=== PATIENT | female | born 1950 | race Caucasian/White ===

== ENCOUNTER 2017-02-15 07:31 | Day surgery (SDC) | payer MEDICARE, OTHER ==
[~2017-02-15 07:31] MED LIST: Lactated Ringers 1,000 ML IV SCH
[2017-02-15] MEDS ORDERED: Propofol 200 MG/20 ML SDV IV ONE (09:30)
[2017-02-15 10:29] VITALS: BP 127/54
--- NOTE | 2017-02-15 15:56 | OR ---
DATE OF OPERATION: 02/15/2017 SURGEON: Adithya Martinez MD PREOPERATIVE DIAGNOSIS: Cataract right eye. POSTOPERATIVE DIAGNOSIS: Cataract right eye. OPERATION PERFORMED: Phacoemulsification of cataract right eye with placement of an Goss, model ZCB00, 22 diopter, foldable, posterior chamber intraocular lens. PRINT LINE OPERATOR: None. DESCRIPTION OF PROCEDURE: Peribulbar anesthetic was performed using a mixture of 2% lidocaine with Wydase. The patient was prepped and draped in the usual fashion. A 3 mm fornix based conjunctival flap was performed at the 10 o'clock position. Hemostasis was obtained using diathermy, and a 2.8 mm grooved near clear corneal incision was then made. A stab incision was made into the anterior chamber at the 12 o'clock position and a second stab wound incision was made underlying the grooved near clear corneal incision. Viscoat was instilled into the anterior chamber, and a continuous tear capsulotomy was performed. Hydrodissection was accomplished with balanced salt solution, and the nucleus was removed in a divide and conquer fashion. The remaining cortical material was removed with the irrigation and aspiration unit. Viscoat was instilled into the anterior chamber, and an Goss, model ZCB00, 22 diopter, foldable, posterior chamber intraocular lens was placed into the capsular bag, the haptics being positioned at the 1 and 7 o'clock positions. The residual Viscoat was removed from the anterior chamber and the anterior chamber reformed with balanced salt solution. The wound was checked and noted to be watertight. The conjunctiva was secured in its original position with diathermy. Alphagan and Maxitrol Ointment were then placed into the patient's eye. The patient tolerated the procedure well and it was without complication. Elapsed phacoemulsification time was 21 seconds. Postoperative instructions as related to activities as well as medications were reviewed with the patient. The patient was instructed to return to see me on the day following surgery for the first postoperative check. The patient was also instructed to contact me prior to that time if she were to have any problems. /[id number] DEG/MODL CC: Dipesh Germain, SHREYA Hannon
== END 2017-02-15 11:10 | disposition home or self-care (01) ==
LOC: FB.SDS 07:31
PROVIDERS: ATTEND Ophthalmology
DX: H26.9 Unspecified cataract (principal); I25.810 Atherosclerosis of coronary artery bypass graft(s) without angina pectoris; E11.9 Type 2 diabetes mellitus without complications; K21.9 Gastro-esophageal reflux disease without esophagitis; E87.6 Hypokalemia; I10 Essential (primary) hypertension; E55.9 Vitamin D deficiency, unspecified; Z88.1 Allergy status to other antibiotic agents; Z88.2 Allergy status to sulfonamides; Z88.8 Allergy status to other drugs, medicaments and biological substances; Z91.040 Latex allergy status; Z79.4 Long term (current) use of insulin; Z72.0 Tobacco use; Z90.49 Acquired absence of other specified parts of digestive tract; Z98.890 Other specified postprocedural states; Z79.84 Long term (current) use of oral hypoglycemic drugs; Z79.82 Long term (current) use of aspirin; Z79.899 Other long term (current) drug therapy; Z87.891 Personal history of nicotine dependence
CPT/HCPCS: 00142; 66984; 82962; A4217; C1780; J2704; J7120

== ENCOUNTER 2017-03-15 07:11 | Day surgery (SDC) | payer MEDICARE, OTHER ==
[2017-03-15] MEDS ORDERED: Phenylephrine 10% Ophth Soln 5 ML Bot EYELF SCH (07:30)
[2017-03-15] MEDS ORDERED: Lactated Ringers 1,000 ML IV SCH (07:30)
[2017-03-15] MEDS ORDERED: Moxifloxacin 0.5% Ophth Soln 3 ML Bottle EYELF SCH (07:30)
[2017-03-15] MEDS ORDERED: Cyclopentolate 1% Ophth Soln 5 ML Bottle EYELF SCH (07:30)
[2017-03-15] MEDS ORDERED: Sodium Chloride 0.9% 10 ML Syringe FLUSH PRN (07:30)
[2017-03-15] MEDS ORDERED: Propofol 200 MG/20 ML SDV IV ONE (09:15)
[2017-03-15 10:29] VITALS: BP 119/62
--- NOTE | 2017-03-16 10:24 | OR ---
DATE OF OPERATION: 03/15/2017 SURGEON: Adithya Martinez MD PREOPERATIVE DIAGNOSIS: Cataract left eye. POSTOPERATIVE DIAGNOSIS: Cataract left eye. OPERATION PERFORMED: Phacoemulsification of cataract left eye with placement of an Goss, model ZCB00, 22 diopter, foldable, posterior chamber intraocular lens. APARTMENT COORDINATOR: None. DESCRIPTION OF PROCEDURE: Peribulbar anesthetic was performed using a mixture of 2% lidocaine with Wydase. The patient was prepped and draped in the usual fashion. A 3 mm fornix based conjunctival flap was performed at the 10 o'clock position. Hemostasis was obtained using diathermy, and a 2.8 mm grooved near clear corneal incision was then made. A stab incision was made into the anterior chamber at the 12 o'clock position and a second stab wound incision was made underlying the grooved near clear corneal incision. Viscoat was instilled into the anterior chamber, and a continuous tear capsulotomy was performed. Hydrodissection was accomplished with balanced salt solution, and the nucleus was removed in a divide and conquer fashion. The remaining cortical material was removed with the irrigation and aspiration unit. Viscoat was instilled into the anterior chamber, and an Goss, model ZCB00, 22 diopter, foldable, posterior chamber intraocular lens was placed into the capsular bag, the haptics being positioned at the 1 and 7 o'clock positions. The residual Viscoat was removed from the anterior chamber and the anterior chamber reformed with balanced salt solution. The wound was checked and noted to be watertight. The conjunctiva was secured in its original position with diathermy. Alphagan and Maxitrol Ointment were then placed into the patient's eye. The patient tolerated the procedure well and it was without complication. Elapsed phacoemulsification time was 26.1 seconds. Postoperative instructions as related to activities as well as medications were reviewed with the patient. The patient was instructed to return to see me on the day following surgery for the first postoperative check. The patient was also instructed to contact me prior to that time if the patient were to have any problems. /[id number] DEG/MODL CC: KATE Suarez NP
== END 2017-03-15 10:39 | disposition home or self-care (01) ==
LOC: FB.SDS 07:11
PROVIDERS: ATTEND Ophthalmology
PROC: 08RK3JZ Replacement of Left Lens with Synthetic Substitute, Percutaneous Approach (ICD-10-PCS; principal; 2017-03-15)
DX: H26.9 Unspecified cataract (principal); Z95.1 Presence of aortocoronary bypass graft; I10 Essential (primary) hypertension; I25.10 Atherosclerotic heart disease of native coronary artery without angina pectoris; E11.9 Type 2 diabetes mellitus without complications; Z79.4 Long term (current) use of insulin; Z87.891 Personal history of nicotine dependence
CPT/HCPCS: 00142; 66984; 82962; A4217; C1780; J2704; J7120